=== PATIENT | male | born 1995 | race Caucasian/White ===

== ENCOUNTER 2018-07-10 17:35 | Emergency (ER) | payer SELFPAY ==
[2018-07-10 18:31] LABS: Bilirubin Negative (Negative); Blood, Urine Negative (Negative); Clarity CLEAR (Clear); Glucose, Urine (Dipstick) Negative (Negative); Leukocyte Negative (Negative); Nitrite Negative (Negative); Protein, Urine (Dipstick) Negative (Neg-Trace); Specific Gravity, Urine 1.007 (1.002-1.036); pH, Urine 7.5 (5.0-9.0)
[2018-07-10 18:31] LABS: #Basophils 0.1 thou/uL (0.0-0.2); #Eosinphils 0.1 thou/uL (0.0-0.7); #Lymphocytes 2.6 thou/uL (1.20-3.40); #Monocytes 0.6 thou/uL (0.11-0.59); #Neutrophils 5.3 thou/uL (1.40-6.50); %Basophils 0.6 % (0.0-1.0); %Eosinophils 1.7 % (0.0-10.0); %Lymphocytes 29.9 % (21.0-51.0); %Monocytes 6.5 % (0.0-10.0); %Neutrophils 61.3 % (42.0-75.0); Hemoglobin 14.8 g/dL (14.0-18.0); Mean Corpuscular HGB CONC 34.3 g/dL (32.0-36.0); Mean Corpuscular Hemoglobin 29.2 pg (27.0-31.0); Mean Corpuscular Volume 85.3 fL (78.0-98.0); Mean Platelet Volume 6.6 fL (7.4-10.4); Platelet Count 339 thou/uL (130-400); RBC Distribution Width 12.4 % (11.5-14.5); Red Blood Cell (RBC) Count 5.06 mill/uL (4.70-6.10); White Blood Cell (WBC) Count 8.7 thou/uL (4.8-10.8)
[2018-07-10 18:50] LABS: ALT (SGPT) 26 U/L (8-55); AST (SGOT) 24 U/L (5-34); Alkaline Phosphatase 99 U/L (40-150); Anion Gap 17 mmol/L (10-20); BUN (Urea Nitrogen) 11 mg/dL (8.9-20.6); Bilirubin, Total 1.1 mg/dL (0.2-1.2); CK (CPK) 296 U/L (30-200); Calc. Creatinine Clearance 0 mL/min (70-130); Calcium 9.8 mg/dL (7.8-10.44); Carbon Dioxide 21 mmol/L (22-29); Chloride 102 mmol/L (98-107); Estimated GFR-MDRD 90; Globulin 3.2 g/dL (2.4-3.5); Glucose 99 mg/dL (70-105); Potassium 3.3 mmol/L (3.5-5.1); Protein, Total 8.2 g/dL (6.0-8.3); Sodium 137 mmol/L (136-145)
[2018-07-10 19:25] LABS: Amphetamine Not Detected (NotDetected); Barbiturates Screen Not Detected (NotDetected); Benzodiazepine Screen Detected (NotDetected); Cocaine Metabolite Screen Not Detected (NotDetected); Medtox Reader # READER 4; Methadone Not Detected (NotDetected); Methamphetamine Not Detected (NotDetected); Opiate Screen Not Detected (NotDetected); Oxycodone Screen Not Detected (NotDetected); Phencyclidine (PCP) Not Detected (NotDetected); THC/Cannabinoid Screen Not Detected (NotDetected); Tricyclic Screen Detected (NotDetected)
[2018-07-10 19:26] LABS: Medtox Control Line Valid? VALID (VALID)
== END 2018-07-10 20:14 | disposition home or self-care (01) ==
LOC: ERS 17:35
DX: T67.5XXA Heat exhaustion, unspecified, initial encounter (principal); F17.210 Nicotine dependence, cigarettes, uncomplicated; F41.9 Anxiety disorder, unspecified; Z79.899 Other long term (current) drug therapy
CPT/HCPCS: 36415; 80053; 80306; 81003; 82550; 85025; 87086; 96360

== ENCOUNTER 2020-06-05 20:33 | Inpatient (IN) | payer OTHER, SELFPAY ==
[2020-06-05 21:19] LABS: Bacteria/HPF None Seen HPF (None Seen); Bilirubin Negative (Negative); Blood, Urine Negative (Negative); Clarity Clear (Clear); Glucose, Urine (Dipstick) Normal (Negative); Ketone, Urine Negative (Negative); Leukocyte Negative Leu/uL (Negative); Mucous/LPF 1+ LPF (<2+); Nitrite Negative (Negative); Protein, Urine (Dipstick) 70 mg/dL (Neg-Trace); RBC/HPF 0-3 HPF (0-3); Specific Gravity, Urine 1.015 (1.002-1.036); Squamous Epithelial 0-3 HPF (0-3); Urobilinogen Normal mg/dL (Less than 2)
[2020-06-05] MEDS ORDERED: Magnesium 2 GM/50 ML BAG (IN WATER) ONE (21:37)
[2020-06-05] MEDS ORDERED: Ondansetron PF 4 MG/2 ML Vial ONE (21:40)
[2020-06-05] MEDS ORDERED: chlordiazePOXIDE HCl 25 MG CAP ONE (21:40)
[2020-06-05] MEDS ORDERED: Diazepam 10 MG/2 ML SYRINGE ONE (21:43)
[2020-06-05 21:50] LABS: #Eosinphils 0.2 thou/uL (0.0-0.7); #Lymphocytes 2.9 thou/uL (1.20-3.40); #Monocytes 0.8 thou/uL (0.11-0.59); #Neutrophils 9.3 thou/uL (1.40-6.50); %Basophils 0.4 % (0.0-1.0); %Eosinophils 1.5 % (0.0-10.0); %Lymphocytes 21.9 % (21.0-51.0); %Monocytes 5.8 % (0.0-10.0); %Neutrophils 70.5 % (42.0-75.0); Hemoglobin 15.9 g/dL (14.0-18.0); Mean Corpuscular HGB CONC 35.8 g/dL (32.0-36.0); Mean Platelet Volume 6.7 fL (7.4-10.4); Platelet Count 359 thou/uL (130-400); RBC Distribution Width 14.5 % (11.5-14.5); Red Blood Cell (RBC) Count 4.68 mill/uL (4.70-6.10); White Blood Cell (WBC) Count 13.2 thou/uL (4.8-10.8)
--- NOTE | 2020-06-05 21:57 | RAD ---
RADIOGRAPH CHEST 1 VIEW: DATE: 06/05/2020 HISTORY: 24-year-old male with dyspnea and tachycardia FINDINGS: There are no airspace densities, pulmonary edema, pneumothorax, or cardiomegaly. The lateral costophr enic angles are sharp. IMPRESSION: No acute cardiopulmonary findings.
[2020-06-05 22:11] LABS: ALT (SGPT) 92 U/L (8-55); AST (SGOT) 93 U/L (5-34); Albumin 4.8 g/dL (3.5-5.0); Alkaline Phosphatase 94 U/L (40-110); Anion Gap 19 mmol/L (10-20); BUN (Urea Nitrogen) Less than 4 mg/dL (8.9-20.6); Bilirubin, Total 1.9 mg/dL (0.2-1.2); Calc. Creatinine Clearance 0 mL/min (70-130); Calcium 10.1 mg/dL (7.8-10.44); Carbon Dioxide 24 mmol/L (22-29); Chloride 94 mmol/L (98-107); Estimated GFR-MDRD Greater than 90; Globulin 3.5 g/dL (2.4-3.5); Glucose 132 mg/dL (70-105); Lipase 310 U/L (8-78); Protein, Total 8.3 g/dL (6.0-8.3); Sodium 134 mmol/L (136-145)
[2020-06-06] MEDS ORDERED: Diazepam 10 MG/2 ML SYRINGE ONE (00:06)
[2020-06-06] MEDS ORDERED: Diazepam 5 MG TAB PO PRN (01:12)
[2020-06-06] MEDS ORDERED: Diazepam 5 MG TAB PO SCH (01:15)
[2020-06-06] MEDS: Lactated Ringer's 1,000 ML IV SCH ×2 (01:20→10:45)
[2020-06-06 01:29] VITALS: BMI 32.6
[2020-06-06] MEDS ORDERED: cloNIDine 0.1 MG TAB PO PRN (07:16)
[2020-06-06] MEDS ORDERED: Ondansetron PF 4 MG/2 ML Vial IVP PRN (08:36)
[2020-06-06] MEDS ORDERED: hydrOXYzine 25 MG TAB PO PRN (08:37)
[2020-06-06] MEDS ORDERED: Mirtazapine 30 MG TAB PO SCH (08:45)
--- NOTE | 2020-06-06 08:45 | HP ---
CHIEF COMPLAINT: Alcohol withdrawal. HISTORY OF PRESENT ILLNESS: The patient is a 24-year-old male, who last saw Dr. Ramsey in March 2019. At that time, he was on mirtazapine for chronic stress and depression, was doing quite well. He states that since that time, he became unable to afford his medication and went off his medication. Subsequently, he began to drink up to a quart of vodka a day. Also, he had recently lost his grandmother in between the grief and coming off his antidepressant. He consumed a quart of vodka daily since that time. He finally came in to the emergency room on 06/05/2020, presenting with anxiety and he states for several days since he quit drinking, he had been having left upper quadrant pain associated with some mild diarrhea. He had been without drinking since the day prior to coming to the emergency room. PAST MEDICAL HISTORY: Negative for previous hospitalizations. Negative for prior surgery. PSYCHIATRIC HISTORY: Significant for anxiety and depression. The patient is on no routine medications. ALLERGIES: HE HAS ALLERGIES TO PENICILLIN. SOCIAL HISTORY: A quart of vodka a day. He smokes and vapes. He admits to using marijuana on a regular basis. MEDICATIONS ON ADMISSION: None. REVIEW OF SYSTEMS: At the time of admission; CONSTITUTIONAL: He denies fever, chills, or general malaise. HEENT: Denies pain or discharge from eyes, ears, nose, or throat. CHEST: Denies cough or shortness of breath. CARDIOVASCULAR: Denies chest pain, but has had some tachycardia and palpitations. ABDOMEN: Complains of pain in the left upper quadrant since stopping drinking and having occasional bouts of diarrhea. Denies nausea or vomiting. : Denies blood in urine or stool or dysuria. MUSCULOSKELETAL: Denies any pain in muscles or joints. SKIN: No new rashes or lesions. NEUROLOGIC: Denies headaches, blurred vision, hypoesthesia, or anesthesia areas. PSYCHIATRIC: Admits to severe depression, anxiety. PHYSICAL EXAMINATION: At the time of admission; VITAL SIGNS: Blood pressure 189/107, pulse 135, respirations 20, temperature 98.5. Pain scale is 7/10. O2 saturation 98% on room air. GENERAL: This is an obese, anxious, male, alert, oriented, cooperative. HEENT: Normocephalic, atraumatic. Pupils are equal, round, and reactive to light. Extraocular muscles are intact. TMs, nares, and pharynx are clear. NECK: Supple. Trachea in midline. CHEST: Clear to auscultation. HEART: Regular rate and rhythm without murmur. ABDOMEN: Tender left upper quadrant. No guarding or rebound. No hepatosplenomegaly. : Deferred. EXTREMITIES: Without clubbing, cyanosis, or edema. Normal range of motion present. SKIN: Without rashes or lesions. NEUROLOGIC: The patient is obviously anxious. Mild tremors noted. Cranial nerves are intact. Gait and cerebral function are untested. Sensory exam is grossly intact. The mental status aside from anxiety is clear. LABORATORY DATA: Lab work on admission shows WBCs 13.2, hemoglobin 15.9, hematocrit 44.5 with platelets at 239. Sodium is 134, potassium 3.0, chloride 94, CO2 of 24, BUN less than 4, creatinine 0.91 with a greater than 90 GFR, glucose 132, calcium 10.1, total bilirubin 1.9, AST elevated at 93, ALT elevated at 92, alkaline phosphatase normal at 94, lipase 310. The urinalysis shows WBCs 7-10. ASSESSMENT AND PLAN: 1. Acute alcohol withdrawal. 2. Hypokalemia. 3. Pancreatitis. 4. Prostatitis. Plan will be clear liquid diet, monitoring his lipase levels, replace his potassium, prevent DTs and serially re-evaluate him. We will also put him on proton pump inhibitors for his probable gastritis/pancreatitis. Job ID: [id number]
[2020-06-06] MEDS ORDERED: Multivitamin W/ Minerals 1 TAB PO SCH (09:00)
[2020-06-06] MEDS ORDERED: Folic Acid 1 MG TAB PO SCH (09:00)
[2020-06-06] MEDS ORDERED: Multivitamins, Adult 10 ML, Thiamine HCl 100 MG, Folic Acid 1 MG in Dextrose 5 %-0.45 %... IV SCH (09:00)
[2020-06-06] MEDS: Diazepam 5 MG TAB PO SCH ×4 (09:31→19:58)
[2020-06-06] MEDS: Folic Acid 1 MG TAB PO SCH (09:32)
[2020-06-06] MEDS: Magnesium Oxide 400 MG TAB PO SCH (09:32)
[2020-06-06] MEDS: Multivit, Therapeutic 1 TAB PO SCH (09:33)
[2020-06-06] MEDS: Pantoprazole 40 MG VIAL IVP SCH ×2 (09:35→19:58)
[2020-06-06] MEDS: Thiamine HCl 200 MG/2 ML VIAL IM SCH (09:36)
[2020-06-06] MEDS: Gabapentin 300 MG CAP PO PRN (09:36)
[2020-06-06] MEDS: NS 0.9% w/ 20 MEQ KCL 1,000 ML IV SCH ×2 (10:52→21:37)
[2020-06-06] MEDS ORDERED: Loperamide HCl 2 MG CAP PO PRN (12:32)
[2020-06-06 12:37] LABS: SARS-CoV-2 MS2 Positive; SARS-CoV-2 N Gene Negative; SARS-CoV-2 S Gene Negative; SARS-CoV-2 by NAA Not Detected (NotDetected); SARS-CoV-2 orf1ab Negative
[2020-06-06] MEDS ORDERED: Loperamide HCl 2 MG CAP PO SCH (12:45)
[2020-06-06] MEDS: Mag-Al Plus 1200 MG/1200 MG/120 MG/30 ML UDCUP PO PRN ×2 (15:40→18:28)
[2020-06-06] MEDS: Mirtazapine 30 MG TAB PO SCH (19:59)
[2020-06-07] MEDS ORDERED: Diazepam 5 MG TAB PO PRN (04:00)
[2020-06-07 04:54] LABS: Hemoglobin A1c 4.7 % (4.0-6.0)
[2020-06-07 05:04] LABS: #Basophils 0.1 thou/uL (0.0-0.2); #Eosinphils 0.4 thou/uL (0.0-0.7); #Lymphocytes 2.5 thou/uL (1.20-3.40); #Monocytes 0.5 thou/uL (0.11-0.59); #Neutrophils 5.2 thou/uL (1.40-6.50); %Basophils 0.8 % (0.0-1.0); %Eosinophils 4.3 % (0.0-10.0); %Lymphocytes 28.8 % (21.0-51.0); %Monocytes 5.5 % (0.0-10.0); %Neutrophils 60.7 % (42.0-75.0); Hemoglobin 12.8 g/dL (14.0-18.0); Mean Corpuscular HGB CONC 33.9 g/dL (32.0-36.0); Mean Corpuscular Hemoglobin 32.9 pg (27.0-31.0); Platelet Count 261 thou/uL (130-400); RBC Distribution Width 14.6 % (11.5-14.5); Red Blood Cell (RBC) Count 3.89 mill/uL (4.70-6.10); White Blood Cell (WBC) Count 8.6 thou/uL (4.8-10.8)
[2020-06-07 05:10] LABS: Anion Gap 12 mmol/L (10-20); BUN (Urea Nitrogen) Less than 4 mg/dL (8.9-20.6); Calc. Creatinine Clearance 205 mL/min (70-130); Calcium 8.6 mg/dL (7.8-10.44); Carbon Dioxide 27 mmol/L (22-29); Chloride 104 mmol/L (98-107); Estimated GFR-MDRD Greater than 90; Glucose 90 mg/dL (70-105); Lipase 174 U/L (8-78); Potassium 3.3 mmol/L (3.5-5.1); Sodium 140 mmol/L (136-145)
[2020-06-07] MEDS: NS 0.9% w/ 20 MEQ KCL 1,000 ML IV SCH ×2 (08:49→16:22)
[2020-06-07] MEDS: Thiamine HCl 200 MG/2 ML VIAL IM SCH (08:53)
[2020-06-07] MEDS: Gabapentin 300 MG CAP PO PRN (08:53)
[2020-06-07] MEDS: Magnesium Oxide 400 MG TAB PO SCH (08:54)
[2020-06-07] MEDS: Folic Acid 1 MG TAB PO SCH (08:54)
[2020-06-07] MEDS: Diazepam 5 MG TAB PO SCH ×4 (08:54→20:21)
[2020-06-07] MEDS: Pantoprazole 40 MG VIAL IVP SCH ×2 (08:54→20:52)
[2020-06-07] MEDS: Multivit, Therapeutic 1 TAB PO SCH (08:54)
[2020-06-07] MEDS ORDERED: Thiamine 100 MG TAB PO SCH (09:00)
[2020-06-07] MEDS ORDERED: Magnesium Oxide 400 MG TAB PO SCH (09:00)
[2020-06-07] MEDS: Mirtazapine 30 MG TAB PO SCH (20:21)
[2020-06-07] MEDS: Mag-Al Plus 1200 MG/1200 MG/120 MG/30 ML UDCUP PO PRN (20:22)
[2020-06-08] MEDS: NS 0.9% w/ 20 MEQ KCL 1,000 ML IV SCH ×2 (03:14→14:40)
[2020-06-08 04:50] LABS: Anion Gap 13 mmol/L (10-20); BUN (Urea Nitrogen) 4 mg/dL (8.9-20.6); Calc. Creatinine Clearance 207 mL/min (70-130); Calcium 8.4 mg/dL (7.8-10.44); Carbon Dioxide 25 mmol/L (22-29); Chloride 104 mmol/L (98-107); Estimated GFR-MDRD Greater than 90; Glucose 121 mg/dL (70-105); Lipase 205 U/L (8-78); Potassium 3.5 mmol/L (3.5-5.1); Sodium 138 mmol/L (136-145)
[2020-06-08 05:40] LABS: Hemoglobin 11.5 g/dL (14.0-18.0); Mean Corpuscular HGB CONC 34.1 g/dL (32.0-36.0); Mean Corpuscular Hemoglobin 33.4 pg (27.0-31.0); Mean Corpuscular Volume 97.9 fL (78.0-98.0); Mean Platelet Volume 6.8 fL (7.4-10.4); Platelet Count 241 thou/uL (130-400); RBC Distribution Width 14.6 % (11.5-14.5); Red Blood Cell (RBC) Count 3.44 mill/uL (4.70-6.10); White Blood Cell (WBC) Count 7.7 thou/uL (4.8-10.8)
[2020-06-08 05:55] LABS: Band 1 % (5-11); Eosinophils 1 % (0-10); Lymphocytes 39 % (21-51); MDiff Complete? YES; Monocytes 6 % (0-10); Platelet Morphology Comment Appears Adequate
[2020-06-08] MEDS: Magnesium Oxide 400 MG TAB PO SCH (08:04)
[2020-06-08] MEDS: Diazepam 5 MG TAB PO SCH ×4 (08:04→22:07)
[2020-06-08] MEDS: Multivit, Therapeutic 1 TAB PO SCH (08:04)
[2020-06-08] MEDS: Pantoprazole 40 MG VIAL IVP SCH ×2 (08:04→22:08)
[2020-06-08] MEDS: Folic Acid 1 MG TAB PO SCH (08:04)
[2020-06-08] MEDS: Thiamine HCl 200 MG/2 ML VIAL IM SCH (08:04)
[2020-06-08] MEDS: ALPRAZolam 0.5 MG TAB PO PRN (10:11)
--- NOTE | 2020-06-08 16:36 | EKG ---
Test Reason : Blood Pressure : / mmHG Vent. Rate : 141 BPM Atrial Rate : 141 BPM P-R Int : 116 ms QRS Dur : 092 ms QT Int : 302 ms P-R-T Axes : 053 072 006 degrees QTc Int : 462 ms Sinus tachycardia Abnormal ECG Confirmed by NATHALIE SALAZAR ([id number]), social media editor SUE STOKES ([id number]) on 06/08/2020 4:35:48 PM Referred By: Confirmed By:NATHALIE SALAZAR
[2020-06-08] MEDS: Mirtazapine 30 MG TAB PO SCH (22:07)
[2020-06-09] MEDS: NS 0.9% w/ 20 MEQ KCL 1,000 ML IV SCH ×2 (02:03→13:41)
[2020-06-09 05:41] LABS: #Basophils 0.1 thou/uL (0.0-0.2); #Eosinphils 0.3 thou/uL (0.0-0.7); #Lymphocytes 2.2 thou/uL (1.20-3.40); #Monocytes 0.6 thou/uL (0.11-0.59); #Neutrophils 4.5 thou/uL (1.40-6.50); %Basophils 0.8 % (0.0-1.0); %Eosinophils 4.1 % (0.0-10.0); %Lymphocytes 28.3 % (21.0-51.0); %Monocytes 7.4 % (0.0-10.0); %Neutrophils 59.4 % (42.0-75.0); Mean Corpuscular HGB CONC 34.2 g/dL (32.0-36.0); Mean Corpuscular Hemoglobin 33.8 pg (27.0-31.0); Mean Corpuscular Volume 98.9 fL (78.0-98.0); Mean Platelet Volume 6.7 fL (7.4-10.4); Platelet Count 257 thou/uL (130-400); RBC Distribution Width 14.9 % (11.5-14.5); Red Blood Cell (RBC) Count 3.56 mill/uL (4.70-6.10); White Blood Cell (WBC) Count 7.6 thou/uL (4.8-10.8)
[2020-06-09 06:03] LABS: Anion Gap 14 mmol/L (10-20); BUN (Urea Nitrogen) Less than 4 mg/dL (8.9-20.6); Calc. Creatinine Clearance 222 mL/min (70-130); Carbon Dioxide 25 mmol/L (22-29); Chloride 106 mmol/L (98-107); Estimated GFR-MDRD Greater than 90; Glucose 117 mg/dL (70-105); Lipase 208 U/L (8-78); Potassium 3.6 mmol/L (3.5-5.1); Sodium 141 mmol/L (136-145)
[2020-06-09] MEDS: Gabapentin 300 MG CAP PO PRN (10:29)
[2020-06-09] MEDS: Folic Acid 1 MG TAB PO SCH (10:29)
[2020-06-09] MEDS: Magnesium Oxide 400 MG TAB PO SCH (10:29)
[2020-06-09] MEDS: Diazepam 5 MG TAB PO SCH ×4 (10:29→21:28)
[2020-06-09] MEDS: Thiamine HCl 200 MG/2 ML VIAL IM SCH (10:30)
[2020-06-09] MEDS: Multivit, Therapeutic 1 TAB PO SCH (10:30)
[2020-06-09] MEDS: Pantoprazole 40 MG VIAL IVP SCH (10:30)
[2020-06-09] MEDS ORDERED: Nicotine 14 MG PATCH TOP SCH (16:00)
[2020-06-09] MEDS ORDERED: buPROPion HCl 100 MG TAB PO SCH (16:00)
[2020-06-09] MEDS: ALPRAZolam 0.5 MG TAB PO PRN (16:29)
[2020-06-09] MEDS: Mirtazapine 30 MG TAB PO SCH (21:28)
[2020-06-10] MEDS: NS 0.9% w/ 20 MEQ KCL 1,000 ML IV SCH (03:47)
[2020-06-10 04:30] LABS: Anion Gap 14 mmol/L (10-20); BUN (Urea Nitrogen) Less than 4 mg/dL (8.9-20.6); Calc. Creatinine Clearance 219 mL/min (70-130); Calcium 9.2 mg/dL (7.8-10.44); Carbon Dioxide 26 mmol/L (22-29); Chloride 105 mmol/L (98-107); Estimated GFR-MDRD Greater than 90; Glucose 93 mg/dL (70-105); Lipase 207 U/L (8-78); Potassium 3.9 mmol/L (3.5-5.1); Sodium 141 mmol/L (136-145)
[2020-06-10] MEDS ORDERED: buPROPion HCl 100 MG TAB PO SCH (09:00)
[2020-06-10] MEDS: Multivit, Therapeutic 1 TAB PO SCH (09:11)
[2020-06-10] MEDS: Diazepam 5 MG TAB PO SCH ×2 (09:11→20:28)
[2020-06-10] MEDS: Thiamine HCl 200 MG/2 ML VIAL IM SCH (09:11)
[2020-06-10] MEDS: Folic Acid 1 MG TAB PO SCH (09:11)
[2020-06-10] MEDS: Magnesium Oxide 400 MG TAB PO SCH (09:11)
[2020-06-10] MEDS: Mag-Al Plus 1200 MG/1200 MG/120 MG/30 ML UDCUP PO PRN (15:03)
[2020-06-10] MEDS: Mirtazapine 30 MG TAB PO SCH (20:28)
[2020-06-10] MEDS: Gabapentin 300 MG CAP PO PRN (21:43)
[2020-06-11 05:12] LABS: Anion Gap 17 mmol/L (10-20); BUN (Urea Nitrogen) 4 mg/dL (8.9-20.6); Calc. Creatinine Clearance 222 mL/min (70-130); Calcium 9.5 mg/dL (7.8-10.44); Carbon Dioxide 22 mmol/L (22-29); Chloride 105 mmol/L (98-107); Estimated GFR-MDRD Greater than 90; Glucose 111 mg/dL (70-105); Lipase 211 U/L (8-78); Potassium 4.4 mmol/L (3.5-5.1); Sodium 140 mmol/L (136-145)
[2020-06-11 07:37] VITALS: BP 137/96; TEMP 97.8
[2020-06-11] MEDS: Multivit, Therapeutic 1 TAB PO SCH (08:27)
[2020-06-11] MEDS: Diazepam 5 MG TAB PO SCH (08:27)
[2020-06-11] MEDS: Magnesium Oxide 400 MG TAB PO SCH (08:27)
[2020-06-11] MEDS: Folic Acid 1 MG TAB PO SCH (08:27)
[2020-06-11] MEDS: Mag-Al Plus 1200 MG/1200 MG/120 MG/30 ML UDCUP PO PRN (08:28)
[2020-06-11] MEDS: Thiamine HCl 200 MG/2 ML VIAL IM SCH (09:11)
[2020-06-11] MEDS: Gabapentin 300 MG CAP PO PRN (09:54)
[2020-06-11 12:45] LABS: Neutrophil 52 % (42-75)
--- NOTE | 2020-06-13 21:53 | PQF ---
CLINICAL DOCUMENTATION CLARIFICATION FORM: Dear : RYAN WHARTON MD Date / Time: 06/13/2020 Please exercise your independent, professional judgment in responding to the clarification form. Clinical indicators are provided on the bottom of this form for your review Please check appropriate box(es): to clarify the acquity of pancreatitis [ x ] Acute pancreatitis [ ] Chronic pancreatitis [ ] Unspecified pancreatitis [ ] Other diagnosis (Please specify if any) [ ] Unable to determine Physician Signature: Date/Time: For continuity of documentation, please document condition throughout progress notes and discharge summary. Thank You. To be completed by CDI/Coding staff for physician review: Present Clinical Indicators - Signs / Symptoms / Labs Results and Location in Medical Record [x ] Alcohol withdrawal H&P on 06/06 [ x ] Pancreatitits H&P on 06/06 [ x ] Lipase-310 H&P on 06/06 [x ] Pancreatitis - clinically improved Progress notes on 06/06 [ ] Present Risk Factors Results and Location in Medical Record [x ] Alcohol withdrawal H&P on 06/06 [ ] [ ] [ ] Present Treatments Results and Location in Medical Record [ x] We will also put him on proton pump inhibitors for his probable gastritis/pancreatitis H&P on 06/06 [ x ] Lactated ringers 1,000 ml IV Medication on 06/06 [ x ] Protonix 40 mg IV Medication from 06/06 to 06/09 [ ] [employer] Signature: JOON Phone #: Date/Time: 06/13/2020 This is a permanent part of the Medical Record [facility]
== END 2020-06-11 10:39 | disposition home or self-care (01) | DRG 896 ==
LOC: ERS 20:33 → 2NO 06-06 01:09
PROVIDERS: ADMIT Specialist; ATTEND Specialist
PROC: HZ2ZZZZ Detoxification Services for Substance Abuse Treatment (ICD-10-PCS; principal; 2020-06-06)
DX: F10.239 Alcohol dependence with withdrawal, unspecified (principal); K85.90 Acute pancreatitis without necrosis or infection, unspecified; F32.9 Major depressive disorder, single episode, unspecified; F41.9 Anxiety disorder, unspecified; Z88.0 Allergy status to penicillin; Z79.899 Other long term (current) drug therapy; R19.7 Diarrhea, unspecified; N41.9 Inflammatory disease of prostate, unspecified; E87.6 Hypokalemia; Z68.32 Body mass index [BMI] 32.0-32.9, adult; E66.9 Obesity, unspecified; Z20.828 Contact with and (suspected) exposure to other viral communicable diseases
CPT/HCPCS: 36415; 71045; 80048; 80053; 81003; 81015; 83036; 83690; 85007; 85025; 85027; 87635; 93005; 96365; 96366; 96367; 96375; 96376; C9113; J1956; J2405; J3360; J3411; J3475; J3480; J7042; U0003